=== PATIENT | male | born 2000 | race Caucasian/White ===

== ENCOUNTER → 2019-04-26 | Outpatient (CLI) | payer BC | LOC: COL.RAD 13:52 | DX: N50.82 Scrotal pain (principal) ==

== ENCOUNTER 2020-05-11 15:15 | Outpatient (RCR) | payer OTHER, BC | END 2020-06-24 13:09 | disposition home or self-care (01) | LOC: WSOT 15:15 | DX: S61.412A Laceration without foreign body of left hand, initial encounter (principal) ==